=== PATIENT | female | born 1980 | race American Indian/Alaskan Native ===

== ENCOUNTER 2020-10-09 05:57 | Day surgery (SDC) | payer MEDICARE ==
[2020-10-09] MEDS ORDERED: SODIUM CHLORIDE 0.9% 1000 ML 1,000 ML IV SCH (06:00)
[2020-10-09] MEDS ORDERED: MIDAZOLAM 2 MG/2 ML INJ IV NR (06:00)
[2020-10-09] MEDS ORDERED: fentaNYL 100 MCG/2 ML INJ IV PRN ×2 (06:00→08:00)
[2020-10-09] MEDS ORDERED: BACTERIOSTATIC SODIUM CHLORIDE 0.9% 30 ML VIAL INFILTRATI ONE (06:01)
[2020-10-09 07:01] LABS: Hematocrit 30.5 % (30.3-42.9); Hemoglobin 10.3 gm/dl (10.1-14.3); Mean Corpuscular HGB Conc 34 % (30-34); Mean Corpuscular Volume 94 fl (79-97); Platelet Count 189 K/mm3 (140-440); Red Blood Count 3.26 M/mm3 (3.65-5.03); Red Cell Distribution Width 15.8 % (13.2-15.2)
[2020-10-09] MEDS ORDERED: fentaNYL 100 MCG/2 ML INJ ONE ×2 (07:08→10:30)
[2020-10-09] MEDS ORDERED: propofoL 200 MG/20 ML VIAL IV ONE ×2 (07:08→07:26)
[2020-10-09 07:14] LABS: Calcium 9.2 mg/dL (8.4-10.2)
[2020-10-09] MEDS ORDERED: HEPARIN 10,000 UNITS/10 ML VIAL ONE (07:23)
[2020-10-09] MEDS ORDERED: BUPIVACAINE/PF (0.5%) 5 MG/1 ML 30 ML VIAL INFILTRATI ONE ×2 (07:23→08:59)
[2020-10-09] MEDS ORDERED: SODIUM CHLORIDE 0.9% 500 ML 500 ML ONE (07:24)
--- NOTE | 2020-10-09 07:33 | Anesthesia Day of Surgery ---
Anesthesia Day of Surgery - Day of Surgery Patient Examined: Yes Patient H&P Reviewed: Yes Patient is NPO: Yes Beta Blockers: Yes (metoprolol today AM)
--- NOTE | 2020-10-09 07:33 | Anesthesia Consultation ---
Anesthesia Consult and Med Hx Date of service: 10/09/20 - Airway Anesthetic Teeth Evaluation: Good ROM Head & Neck: Adequate Mental/Hyoid Distance: Adequate Mallampati Class: Class III Intubation Access Assessment: Possibly Difficult - Pre-Operative Health Status ASA Pre-Surgery Classification: ASA3 Proposed Anesthetic Plan: General - Pulmonary Hx Smoking: No Hx Respiratory Symptoms: No - Cardiovascular System Hx Hypertension: Yes (took metoprolol this morning) Hx Heart Attack/AMI: No Hx Percutaneous Transluminal Coronary Angioplasty (PTCA): No Hx Cardia Arrhythmia: No - Central Nervous System CVA: No - Endocrine Hx End Stage Renal Disease: Yes (last HD 10/08/20) Hx Liver Disease: No Hx Insulin Dependent Diabetes: No Hx Non-Insulin Dependent Diabetes: No Hx Thyroid Disease: No - Hematic Hx Anemia: Yes - Other Systems Hx Obesity: Yes (BMI 48) - Additional Comments Anesthesia Medical History Comments: No hx anesthetic complications.
[2020-10-09] MEDS ORDERED: LIDOCAINE MPF (2%) 20 MG/1 ML VIAL 5 ML ONE ×2 (07:43→07:44)
[2020-10-09] MEDS ORDERED: ONDANSETRON 4 MG/2 ML INJ IV PRN (08:00)
[2020-10-09] MEDS ORDERED: HEPARIN 10,000 UNITS/10 ML VIAL IR ONE (08:58)
[2020-10-09] MEDS ORDERED: ONDANSETRON 4 MG/2 ML INJ ONE (08:58)
[2020-10-09] MEDS ORDERED: SODIUM CHLORIDE 0.9% 500 ML IVPB IRRIGATION ONE (08:59)
[2020-10-09] MEDS ORDERED: SODIUM CHLORIDE 0.9% IRR 1,500 ML BOTTLE IR ONE (09:02)
[2020-10-09] MEDS ORDERED: PHENYLEPHRINE/NS 1,000 MCG/10 ML SYRINGE (OR USE) IV ONE (09:20)
[2020-10-09] MEDS ORDERED: ePHEDrine SULFATE 50 MG/1 ML INJ ONE (09:21)
--- NOTE | 2020-10-09 10:22 | Short Stay Summary ---
Short Stay Documentation Date of service: 10/09/20 Narrative H&P: See H&P - History H&P: obtained from office - Allergies and Medications Current Medications: Allergies Penicillins Adverse Reaction (Intermediate, Verified 10/02/20 16:48) Hives Home Medications Medication Instructions Recorded Confirmed Last Taken Type Metoprolol [Lopressor TAB] 50 mg PO BID 10/02/20 10/09/20 10/09/20 05:45 History Nifedipine 90 mg PO DAILY 10/02/20 10/02/20 10/08/20 History Tums 500MG CHEW 1 tab PO TID 10/02/20 10/02/20 10/08/20 History Active Medications Fentanyl (Fentanyl 100 Mcg/2 Ml Inj) 50 mcg IV Q5MIN PRN PRN Reason: Pain , Severe (7-10) Stop: 10/09/20 16:00 Clindamycin HCl (Cleocin 900 Mg/50 Ml) 900 mg in 50 mls @ 100 mls/hr IV PREOP NR; Protocol Stop: 10/09/20 23:59 Sodium Chloride (Nacl 0.9% 1000 Ml) 1,000 mls @ 42 mls/hr IV DIRECT LAUREL Stop: 10/09/20 23:59 Last Admin: 10/09/20 07:30 Dose: 42 mls/hr Documented by: Midazolam HCl (Midazolam 2 Mg/2 Ml Inj) 2 mg IV PREOP NR Stop: 10/09/20 23:00 Last Admin: 10/09/20 08:03 Dose: 2 mg Documented by: Ondansetron HCl (Ondansetron 4 Mg/2 Ml Inj) 4 mg IV ONCE PRN PRN Reason: Nausea And Vomiting Stop: 10/09/20 17:00 - Brief post op/procedure progress note Date of procedure: 10/09/20 Pre-op diagnosis: End-Stage Renal Disease Post-op diagnosis: same Procedure: Creation of Left Brachiocephalic Arteriovenous Fistula Anesthesia: ADELA Surgeon: FRANCES COBB Estimated blood loss: minimal Pathology: none Condition: stable - Disposition Condition at discharge: Good Short Stay Discharge Plan Activity: other (No heavy lifting with left arm. Use stress ball with left hand as often as possible.) Wound: open to air, keep clean and dry, other (Okay to wash the left arm wound with soap and water but do not soak in water for 2 weeks.) Follow up with: FRANCES COBB MD [Staff Physician] - 14 Days Prescriptions: HYDROcodone/APAP 7.5-325 [[place] 7.5/325] 1 each PO Q6HR PRN #40 tablet PRN Reason: Pain
--- NOTE | 2020-10-09 10:23 | Operative Report ---
Operative Report Operative Report: Date of procedure: 10/09/2020 Pre-operative diagnosis: End-Stage Renal Disease Post-operative diagnosis: End-Stage Renal Disease Procedure(s): Creation of Left brachial Artery to Cephalic Vein Arteriovenous Fistula Surgeon: Khai Banks MD Bodybuilder: None Anesthesia: General Endotracheal Anesthesia EBL: Minimal Counts: Correct Complications: None Condition: Stable Findings: Successful creation of left brachiocephalic arteriovenous fistula with palpable thrill and palpable radial pulse at the completion of the case. Specimen: None Indications: The patient is a 39-year-old female with a history of end-stage renal disease who is currently on hemodialysis through a right internal jugular permacath. She is in need of long-term dialysis access and had a vein that is suitable for creation of an arteriovenous fistula. She was given the risk, benefits, and alternative procedures and consented to the procedure. Description of Procedure: The patient was brought to the operating room and laid in supine position. After a timeout was performed her left arm was prepped and draped in normal sterile fashion. A transverse incision was then made and carried down to the cephalic vein using sharp dissection. The vein was dissected out both proximally and distally and suture ligated and divided distally. I flushed the vein with heparinized saline and flow was controlled with a bulldog clamp. I then dissected out the brachial artery through this incision circumferentially both proximal and distal and controlled the artery with vessel loops. I systemically heparinized the patient with 3000 units of heparin IV and used angled DeBakey clamps to control flow through the artery. I created an arteriotomy using an 11 blade and Pavon scissors. I created an end to side anastomosis between the cephalic vein and brachial artery using a 6-0 Prolene in running fashion. Prior to completing the anastomosis I flashed the artery both proximally and distally and then flushed the anastomosis with heparinized saline to remove any debris. I then completed the anastomosis and removed all clamps allowing flow into the fistula which had an adequate thrill. I achieved hemostasis with a combination of Quick Clot and electrocautery. Once hemostasis had been achieved I closed the wound in 2 layers using a 3-0 Vicryl in a running fashion in the deep dermal layer and a 4-0 Monocryl in running fashion in the subcuticular layer. I then dressed the wound with Dermabond. The patient tolerated the procedure well. All sponge, needle, and instrument counts were correct. The patient was taken to the recovery area in stable condition.
[2020-10-09] MEDS ORDERED: HYDROcodone/ACETAMINOPHEN 5-325 MG TAB PO PRN (12:00)
[2020-10-09] MEDS ORDERED: HEPARIN 10,000 UNIT/1 ML VIAL ONE (12:03)
[2020-10-09] MEDS ORDERED: HEPARIN 10,000 UNIT/1 ML VIAL IV ONE (12:15)
[2020-10-09 13:02] VITALS: BP 121/74
--- NOTE | 2020-10-09 15:05 | Post Anesthesia Evaluation ---
- Post Anesthesia Evaluation Patient Participated: Yes Airway Patent: Yes Stable Respiratory Function: Yes Nausea/Vomiting: No Temp > 96.8F: Yes Pain Manageable: Yes Adequeate Hydration: Yes Anesthesia Complications: No
== END 2020-10-09 05:58 | disposition home or self-care (01) ==
LOC: OR 05:57
PROVIDERS: ATTEND Surgery Vascular Surgery
DX: I12.0 Hypertensive chronic kidney disease with stage 5 chronic kidney disease or end stage renal disease (principal); N18.6 End stage renal disease; K21.9 Gastro-esophageal reflux disease without esophagitis; E66.9 Obesity, unspecified; D64.9 Anemia, unspecified; Z98.890 Other specified postprocedural states; Z88.0 Allergy status to penicillin; Z79.899 Other long term (current) drug therapy; Z68.42 Body mass index [BMI] 45.0-49.9, adult
CPT/HCPCS: 36415; 36821; 80048; 84703; 85027; J1644; J2250; J2370; J2405; J2704; J3010; J7030; J7040

== ENCOUNTER 2020-12-11 14:44 | Day surgery (SDC) | payer MEDICARE ==
[2020-12-11 16:00] LABS: Hematocrit 29.1 % (30.3-42.9); Hemoglobin 9.9 gm/dl (10.1-14.3); Mean Corpuscular HGB Conc 34 % (30-34); Mean Corpuscular Volume 95 fl (79-97); Platelet Count 198 K/mm3 (140-440); Red Blood Count 3.05 M/mm3 (3.65-5.03); Red Cell Distribution Width 15.2 % (13.2-15.2)
[2020-12-11] MEDS ORDERED: SODIUM CHLORIDE 0.9% 500 ML 500 ML IV SCH (16:00)
[2020-12-11 16:07] LABS: Partial Thromboplastin Time 33.2 Sec. (24.2-36.6)
[2020-12-11 16:12] LABS: Calcium 8.9 mg/dL (8.4-10.2)
[2020-12-11] MEDS ORDERED: HEPARIN/NS 5000 UNIT/500ML 1,000 ML IR ONE ×2 (17:56→19:07)
[2020-12-11] MEDS ORDERED: SODIUM CHLORIDE 0.9% 500 ML 500 ML ONE (18:05)
[2020-12-11] MEDS: fentaNYL 100 MCG/2 ML INJ ONE ×7 (18:27→19:40)
[2020-12-11] MEDS: MIDAZOLAM 2 MG/2 ML INJ ONE ×7 (18:27→19:40)
[2020-12-11] MEDS: LIDOCAINE (2%) 20 MG/1 ML VIAL 20 ML MDV INFILTRATI ONE ×2 (18:29→18:36)
[2020-12-11] MEDS: HEPARIN 10,000 UNITS/10 ML VIAL ONE ×4 (18:38→20:06)
[2020-12-11] MEDS ORDERED: fentaNYL 100 MCG/2 ML INJ ONE (19:39)
[2020-12-11] MEDS ORDERED: MIDAZOLAM 2 MG/2 ML INJ ONE (19:39)
[2020-12-11] MEDS ORDERED: LIDOCAINE (2%) 20 MG/1 ML VIAL 20 ML MDV INFILTRATI ONE (19:52)
--- NOTE | 2020-12-11 20:24 | Short Stay Summary ---
Short Stay Documentation Date of service: 12/11/20 Narrative H&P: See H&P - History H&P: obtained from office - Allergies and Medications Current Medications: Allergies Penicillins Adverse Reaction (Intermediate, Verified 10/02/20 16:48) Hives Home Medications Medication Instructions Recorded Confirmed Last Taken Type Metoprolol [Lopressor TAB] 50 mg PO BID 10/02/20 12/11/20 12/11/20 12:30 History Nifedipine 90 mg PO DAILY 10/02/20 12/11/20 12/10/20 History Tums 500MG CHEW 1 tab PO TID 10/02/20 12/11/20 10/08/20 History Cinacalcet HCl 1 tab PO DAILY 12/11/20 12/11/20 12/10/20 History Active Medications Sodium Chloride (Nacl 0.9% 500 Ml) 500 mls @ 50 mls/hr IV DIRECT LAUREL Clindamycin HCl (Cleocin 900 Mg/50 Ml) 900 mg in 50 mls @ 100 mls/hr IV PREOP NR; Protocol Stop: 12/11/20 23:00 Last Admin: 12/11/20 18:30 Dose: 50 mls Documented by: - Brief post op/procedure progress note Date of procedure: 12/11/20 Pre-op diagnosis: Complications of Dialysis Access Post-op diagnosis: same Procedure: 1. Ultrasound-Guided Access Left Arm AV Fistula with 7 Turkish Sheath Venous 2. Ultrasound-Guided Access Left Arm AV Fistula with 6 Turkish Sheath Arterial 3. Ultrasound-Guided Access Left Arm AV Fistula with 6 Turkish Sheath Arterial 4. Diagnostic Fistulogram with Central Venogram 5. Catheter in Left Brachial Artery 6. Diagnostic Left Upper Extremity Angiogram 7. Angioplasty of Left Arm AV Fistula with 6 x 200 EverCross Balloon In the Venous Outflow, 5 x 20 Cutting Balloon, 5 x 100 Angiosculpt Balloon, and 6 x 80 IN.PACT Drug-Coated Balloon In the Arterial Inflow 8. Percutaneous Mechanical Thrombectomy Left Arm AV Fistula with Trerotola Device 9. Exchange of Right Internal Jugular Permacath to 19 Cm Glidepath Permacath over Wire 10. Radiologic Supervision with Interpretation 11. Monitored Moderate Sedation (Total Anesthesia Time: 102 Minutes) Anesthesia: local, other (Monitored Moderate Sedation) Surgeon: FRANCES COBB Estimated blood loss: minimal Pathology: none Condition: stable - Disposition Condition at discharge: Good Disposition: [id number]-01 TO HOME OR SELFCARE Short Stay Discharge Plan Activity: other (Okay to use permacath and dialysis at next dialysis session) Special Instructions: other (You will be given Eliquis Samples to take for 2 weeks secondary to residual thrombus in the arterial inflow of the fistula - Take Eliquis 2.5 mg by mouth 1 tablet Every 12 Hours until the 2 boxes are completed) Follow up with: FRANCES COBB MD [Staff Physician] - 14 Days Prescriptions: HYDROcodone/APAP 7.5-325 [[place] 7.5/325] 1 each PO Q6HR PRN #30 tablet PRN Reason: Pain
[2020-12-11] MEDS ORDERED: APIXABAN 5 MG TAB PO ONE (20:30)
--- NOTE | 2020-12-11 20:31 | Operative Report ---
Operative Report Operative Report: Date of Procedure: 12/11/2020 Pre-operative Diagnosis: Complications of Dialysis Access Post-operative Diagnosis: Same Procedure(s): 1. Ultrasound-Guided Access Left Arm AV Fistula with 7 [place] Sheath Venous 2. Ultrasound-Guided Access Left Arm AV Fistula with 6 [place] Sheath Arterial 3. Ultrasound-Guided Access Left Arm AV Fistula with 6 [place] Sheath Arterial 4. Diagnostic Fistulogram with Central Venogram 5. Catheter in Left Brachial Artery 6. Diagnostic Left Upper Extremity Angiogram 7. Angioplasty of Left Arm AV Fistula with 6 x 200 EverCross Balloon In the Venous Outflow, 5 x 20 Cutting Balloon, 5 x 100 Angiosculpt Balloon, and 6 x 80 IN.PACT Drug-Coated Balloon In the Arterial Inflow 8. Percutaneous Mechanical Thrombectomy Left Arm AV Fistula with Trerotola Device 9. Exchange of Right Internal Jugular Permacath to 19 Cm Glidepath Permacath over Wire 10. Radiologic Supervision with Interpretation 11. Monitored Moderate Sedation (Total Anesthesia Time: 102 Minutes) Surgeon: Khai Banks M.D. Welt Rougher: Nathaniel Anesthesia: Monitored Moderate Sedation Total Anesthesia Time: 102 Minutes EBL: Minimal Counts: Correct Complications: None Condition: Stable Specimen: None Indication: The patient is a 40-year-old female with a history of end-stage renal disease who is currently on hemodialysis through a right internal jugular permacath. She had a creation of a left brachiocephalic arteriovenous fistula that recently thrombosed. She is in need of a diagnostic fistulogram with possible intervention. In addition to intervention on the fistula she has a right internal jugular permacath that she currently uses for hemodialysis however they are having difficulty using the permacath so she is in need of an exchange. She has been given the risk, benefits, and alternative procedures and consented to the procedure. Angiographic Findings: The diagnostic fistulogram revealed 75 to 85% stenosis over a long segment extending through the cephalic arch and the venous outflow of the fistula. The central venous system was patent without evidence of flow-limiting stenosis. The arterial inflow the fistula had thrombus and approximately 90% stenosis of the arterial anastomosis. The diagnostic left upper extremity angiogram revealed the brachial artery was patent without evidence of flow-limiting stenosis. There was a persistent defect at the arterial anastomosis, that appeared to be throm,bus and despite intervention with angioplasty using cutting balloons as well as using the Trerotola device the defect persisted however there was brisk flow through the fistula at the completion of the case and the plan is to place the patient on 2 weeks of anticoagulation. Otherwise the remainder of the fistula had less than 10% residual stenosis. Description of Procedure: The patient was brought to the [facility] and laid in supine position. After timeout was performed her left arm was prepped and draped in normal sterile fashion. Lidocaine was used to anesthetize the skin and soft tissue overlying the fistula near the arterial inflow and a 21-gauge micropuncture needle was used with ultrasound guidance to enter the fistula towards the venous outflow. A 0.018 micropuncture wire was advanced through the fistula and after removing the needle a 7 [place] sheath was placed by Seldinger technique. A diagnostic fistulogram with central venogram was performed with the previously described findings. At this point I systemically heparinized the patient with 3000 units of heparin IV. I used a vertebral catheter and advanced a 0.035 exchange length Bentson wire into the central venous system and then performed angioplasty of the venous outflow of the fistula using a 6 x 200 EverCross Balloon with a result of less than 10% residual stenosis. I then used ultrasound to identify the fistula, in the upper arm near the venous outflow, and anesthetized the skin overlying soft tissue with lidocaine. I used a 21-gauge micropuncture needle ultrasound guidance to access the fistula towards the arterial inflow. I advanced the 0.018 micropuncture wire into the fistula and after removing the needle placed a 6 [place] sheath by Seldinger technique. I used a 0.035 floppy Glidewire and vertebral catheter and advanced this into the arterial inflow of t he fistula and performed a diagnostic fistulogram with the previously described findings. I then advanced the vertebral catheter and floppy Glidewire into the proximal brachial artery and performed a diagnostic left lower extremity angiogram with the previously described findings. I then advanced the 0.014 Spartacore Wire into the brachial artery and performed angioplasty of the arterial inflow the fistula using a 5.0 x 100 Angiosculpt Balloon which resulted in approximately 50% residual stenosis and a significant amount of residual thrombus. I then remove the wire and used a Trerotola Device to morcellate the thrombus. I was able to aspirate the thrombus through the 6 [place] sheath. This left what appeared to be a flap of residual thrombus at the arterial anastomosis. I used the vertebral catheter to advance the Glidewire back into the brachial artery and reinserted the [place] core wire. I then used a 5 x 20 Cutting Balloon to perform angioplasty of the anastomosis and again the flap of thrombus persisted. I remove the wire and attempted to advance the Trerotola device back to the arterial anastomosis however it continued to advance into a branch secondary to the placement of my sheath near the branch. At this point I decided to remove the 6 [place] sheath and closed the entry site using a 3-0 Vicryl in pursestring fashion. I then used ultrasound to identify a site closer to the arterial inflow and anesthetized the skin and soft tissue with lidocaine. I used ultrasound guidance with the 21-gauge micropuncture needle to access the site and advanced the 0.018 micropuncture wire into the fistula. After removing the needle I placed a 6 [place] sheath by Seldinger technique. I then used the Trerotola device and advanced this to the arterial anastomosis and attempted to use a device to remove the thrombus from the arterial anastomosis however the area persisted. I removed the device and advanced the Bentson wire into the radial artery and then advanced a 6 x 80 IN.PACT Drug-Coated Balloon across the anastomosis thinking that this was possibly a dissection flap. I performed angioplasty with the balloon with a 3-minute inflation and then advanced the vertebral catheter and Bentson wire into the proximal brachial artery for final angiogram revealing brisk flow of contrast through the fistula with less than 10% residual stenosis due to majority of the fistula however this flap versus thrombus persisted but was not flow-limiting. There was no evidence of distal emboli in the radial and ulnar arteries were patent without evidence of flow- limiting stenosis. At this point I decided to remove the balloon and wire with the plan to place the patient on Eliquis for 2 weeks post procedure to treat the persistent thrombus. I then used 3-0 Vicryl in pursestring fashion to close each entry site after removing the sheaths. The patient tolerated the procedure well and was transported to the recovery area in stable condition.
[2020-12-11 21:26] VITALS: BP 138/76
== END 2020-12-11 14:45 | disposition home or self-care (01) ==
LOC: CATHLABREC 14:44
PROVIDERS: ATTEND Surgery Vascular Surgery
DX: T82.868A Thrombosis due to vascular prosthetic devices, implants and grafts, initial encounter (principal); T82.590A Other mechanical complication of surgically created arteriovenous fistula, initial encounter; T82.858A Stenosis of other vascular prosthetic devices, implants and grafts, initial encounter; I12.0 Hypertensive chronic kidney disease with stage 5 chronic kidney disease or end stage renal disease; N18.6 End stage renal disease; I71.4 Abdominal aortic aneurysm, without rupture; D64.9 Anemia, unspecified; K21.9 Gastro-esophageal reflux disease without esophagitis; E66.9 Obesity, unspecified; Z88.0 Allergy status to penicillin; Z79.899 Other long term (current) drug therapy; Z68.42 Body mass index [BMI] 45.0-49.9, adult; Z82.49 Family history of ischemic heart disease and other diseases of the circulatory system; Y83.8 Other surgical procedures as the cause of abnormal reaction of the patient, or of later complication, without mention of misadventure at the time of the procedure; Y92.89 Other specified places as the place of occurrence of the external cause
CPT/HCPCS: 36415; 36581; 36905; 77001; 80048; 85027; 85610; 85730; 99156; 99157; C1725; C1750; C1751; C1757; C1769; C1894; C2623; J1644; J2250; J3010; J7040; Q9967